=== PATIENT | female | born 1945 | race African-American/Black ===

== ENCOUNTER → 2016-06-09 14:43 | Outpatient (CLI) | payer MEDICARE ==
[~2016-06-09 14:43] MED LIST: AQUASOL E50 UNIT/ML; ASCORBIC ACID500 MG PO; BAYER CHEWABLE81 MG PO; COUMADIN3 MG PO; FERROUS SULFAT325 MG PO; LOPRESSOR25 MG PO; LOVENOX30 MG/0.3; NORVASC5 MG PO; VITAMIN D31000 UNI2 PO; VITAMIN E IM; ZOCOR20 MG PO; ZYLOPRIM100 MG PO
[2016-06-09 16:04] LABS: % SATURATION 18 % (15-55); IRON 48 ug/dl (35-150); TOTAL IRON BIND CAPACITY 259 ug/dl (260-445); UNSAT IRON BIND CAPACITY 211 ug/dl (150-375)
== END | disposition home or self-care (01) ==
LOC: D.LAB 14:43
PROVIDERS: Internal Medicine Gastroenterology
DX: D64.9 Anemia, unspecified (principal)

== ENCOUNTER → 2016-06-12 19:47 | Outpatient (CLI) | payer MEDICARE ==
[2015-04-17 11:30] VITALS: BMI 34.9
== END | disposition home or self-care (01) ==
LOC: D.LABREF 19:47
DX: K31.5 Obstruction of duodenum (principal); D64.9 Anemia, unspecified

== ENCOUNTER 2016-06-17 18:46 | Observation (INO) | payer MEDICARE ==
[~2016-06-17] VITALS: Ht 160 cm; Wt 68.2 kg
[2016-06-17 19:00] VITALS: BP 130/62
--- NOTE | 2016-06-17 20:00 | NUR ---
RECEIVED PT TO ROOM 2117 ALERT O X3. ADMITTED FOR OP PRBC TRANSFUSION.
--- NOTE | 2016-06-17 20:15 | NUR ---
CONSENT OBTAINED AND PLACED ON CHART.
--- NOTE | 2016-06-17 21:00 | NUR ---
IV SITED TO RIGHT FA, 20G X2 STICKS.
--- NOTE | 2016-06-17 21:45 | NUR ---
UNIT #1PRBC STARTED. VSS. WILL MONITOR PER PROTOCOL.
--- NOTE | 2016-06-17 22:54 | NUR ---
TOLERATING TRANSFUSION WELL WITH NO S/S REACTION AT THIS TIME. CONT TO MONITOR.
[2016-06-18 00:34] VITALS: BP 149/74
--- NOTE | 2016-06-18 01:00 | NUR ---
TOLERATED FIRST UNIT PRBC WELL WITH NO S/S REACTION.
[2016-06-18 03:22] VITALS: Ht 160 cm; Wt 68.2 kg
[2016-06-18 04:00] VITALS: BP 187/80
--- NOTE | 2016-06-18 04:11 | NUR ---
MEDICAL SCREENER AT BEDSIDE FOR VS. NEEDS ADDRESSED. CALL LIGHT INREACH. WILL CONT TO MONITOR.
--- NOTE | 2016-06-18 04:37 | NUR ---
UNIT #2 COMPLETE. TOLERATED WELL. VSS. FLUSHING NS
--- NOTE | 2016-06-18 06:00 | NUR ---
IVSL REMOVED WITH CATH TIP INTACT.
--- NOTE | 2016-06-18 06:26 | NUR ---
AMBULATE TO ER EXIT WITH PT TO DC HOME.
--- NOTE | 2016-06-18 06:26 | NUR ---
DC INSTRUCTIONS GIVEN TO FOLLOW UP WITH DR WAGGONER ALREADY PLANNED.
== END 2016-06-18 06:27 | disposition home or self-care (01) ==
LOC: D.OPS 18:46 → D.M2 18:51 → D.OPS 06-18 00:26 → D.M2 06-18 00:29 → OBSVTIME 06-18 00:29 → D.M2 06-18 06:27
PROVIDERS: ADMIT Emergency Medicine
DX: D64.9 Anemia, unspecified (principal)

== ENCOUNTER → 2016-09-22 13:40 | Outpatient (CLI) | payer MEDICARE ==
[2016-06-18 03:22] VITALS: BMI 26.6
== END | disposition home or self-care (01) ==
LOC: D.MAMMO 09:00
DX: Z85.3 Personal history of malignant neoplasm of breast (principal)

== ENCOUNTER → 2016-10-03 16:45 | Outpatient (CLI) | payer MEDICARE ==
[2016-06-18 03:22] VITALS: BMI 26.6
== END | disposition home or self-care (01) ==
LOC: D.MAMMO 11:00
DX: R92.8 Other abnormal and inconclusive findings on diagnostic imaging of breast (principal); Z85.3 Personal history of malignant neoplasm of breast

== ENCOUNTER 2018-04-20 09:00 | Day surgery (SDC) | payer MEDICARE ==
[~2018-04-20] VITALS: Ht 160 cm; Wt 87.3 kg
[2018-04-20 10:08] LABS: HEMOGLOBIN 12.7 g/dL (12-16); MCH 31.9 pg (26.0-34.0); MCHC 33.4 g/dL (31.0-37.0); MCV 95.5 fL (80.0-100.0); MEAN PLATELET VOLUME 11.3 fL (7.4-10.4); RBC 3.98 10x6/uL (4.00-5.40); RDW 14.1 % (11.5-14.5)
[2018-04-20] MEDS ORDERED: SODIUM BICARBO650 MG PO (11:41)
[2018-04-20] MEDS ORDERED: LEVOTHYROXINE50 MCG PO (11:41)
[2018-04-20] MEDS ORDERED: GLUCOTROL 5 MG T5 MG PO (11:41)
[2018-04-20 11:48] VITALS: BP 122/71; Ht 160 cm; Wt 87.3 kg
[2018-04-20 12:09] LABS: APTT 47.7 SECONDS (22.8-39.4)
[2018-04-20 12:12] LABS: INR 2.39 (0.85-1.17); PROTIME 25.3 SECONDS (11.6-15.0)
--- NOTE | 2018-04-20 14:42 | NUR ---
1435-discharged home via wheelchair
--- NOTE | 2018-04-21 11:00 | HP ---
PATIENT: RADHA PADILLA MEDICAL RECORD: [id number] ACCOUNT: [id number] LOCATION:[facility] : 41 ADMISSION DATE: 04/20/18 PCP: VERENICE GARCIA MD HISTORY AND PHYSICAL EXAMINATION HISTORY OF PRESENT ILLNESS: The patient has a history of multiple colon polyps. She is on Coumadin due to an artificial heart valve. She has been taking her Coumadin. SOCIAL HISTORY: Nonsmoker. PAST MEDICAL AND SURGICAL HISTORY: Hypertension, diabetes, hypothyroidism, chronic kidney disease as well as aortic valve replacement. ALLERGIES: No known drug allergies. PHYSICAL EXAMINATION: GENERAL: The patient does not appear acutely ill. She does not appear chronically ill. VITAL SIGNS: Reviewed. EARS: External ears appear normal. EYES: Extraocular movements are intact. NECK: Trachea is midline. CHEST: No intercostal retractions. PULMONARY: Nonlabored, no stridor. IMPRESSION: History of complex colon polyps and the patient is on Coumadin. PLAN: Colonoscopy, possible endoscopic mucosal resection, possible polypectomy utilizing the argon plasma american sign language interpreter. TRANSINT:[id number] Voice Confirmation ID: [id number] DOCUMENT ID: [id number] JUNE BROWN MD at 1100 CC: VERENICE GARCIA MD, Mae GOMEZ EDWARD [id number] DICTATION DATE: 04/20/18 1308 PUBLIC WORKS LABORER: 04/20/18 1504 [facility] 04/20/18 [place] [id number] [place] [id number]
--- NOTE | 2018-04-21 11:00 | OP ---
PATIENT NAME: RADHA PADILLA MEDICAL RECORD: [id number] :41 LOCATION:[facility] ADMISSION DATE: SURGEON: JUNE BROWN MD DATE OF OPERATION: 04/20/2018 PREOPERATIVE DIAGNOSIS: History of colon polyps. POSTOPERATIVE DIAGNOSIS: History of colon polyps with no recurrent polyps or persistence of any polyps. PROCEDURE: Surveillance colonoscopy. SURGEON: June Brown MD CHIEF MEDICAL DIRECTOR: None. BLOOD LOSS: Minimal. ANESTHESIA: IV sedation. COMPLICATIONS: None. The risks, possible complications, and alternatives to the procedure were explained to the patient. She elects to proceed. ENDOSCOPIC COURSE: The patient was conveyed to the endoscopy suite electively on 04/20/2018. IV sedation was induced by the anesthesia staff. The patient was placed in the Morales position. A digital rectal examination was performed. A colonoscope was inserted through the anus. It was easily advanced to the cecum. The prep was adequate. I slowly withdrew the endoscope. A combination of normal imaging and narrow band imaging was utilized. I dragged the folds. I irrigated and aspirated extensively. A retroflexed view was obtained in the rectum. I then unretroflexed the scope and removed it under direct vision. As no biopsies were performed, there is no need for her to follow up with me in the office unless she develops a complication related to this endoscopic procedure. I will plan for her next surveillance colonoscopy to take place in 3 years. TRANSINT:[id number] Voice Confirmation ID: [id number] DOCUMENT ID: [id number] JUNE BROWN MD at 1100 CC: VERENICE GARCIA MD, Mae GOMEZ EDWARD [id number] DICTATION DATE: 04/20/18 1339 OXYGEN THERAPY TECHNICIAN: 04/20/[address] [facility] 04/20/18 [place] [address]
== END 2018-04-20 14:35 | disposition home or self-care (01) ==
LOC: D.OPS 09:00
PROVIDERS: Anesthesiology
DX: Z86.010 Personal history of colon polyps (principal); Z79.01 Long term (current) use of anticoagulants; Z95.2 Presence of prosthetic heart valve; E03.9 Hypothyroidism, unspecified; E11.22 Type 2 diabetes mellitus with diabetic chronic kidney disease; I12.9 Hypertensive chronic kidney disease with stage 1 through stage 4 chronic kidney disease, or unspecified chronic kidney disease; N18.9 Chronic kidney disease, unspecified; Z01.812 Encounter for preprocedural laboratory examination

== ENCOUNTER → 2018-04-26 22:00 | Outpatient (CLI) | payer MEDICARE ==
[2018-04-20 11:48] VITALS: BMI 34.0
[~2018-04-26 22:00] MED LIST changes: +GLUCOTROL 5 MG T5 MG PO; +LEVOTHYROXINE50 MCG PO; +SODIUM BICARBO650 MG PO
== END | disposition home or self-care (01) ==
LOC: D.MAMMO 13:30
DX: Z85.3 Personal history of malignant neoplasm of breast (principal)

== ENCOUNTER → 2018-12-06 11:00 | Outpatient (CLI) | payer MEDICARE ==
[2018-04-20 11:48] VITALS: BMI 34.0
--- NOTE | 2018-12-09 13:30 | EC ---
PATIENT:RADHA PADILLA DATE OF SERVICE: 12/06/18 SEX: F MEDICAL RECORD: [id number] DATE OF : 41 [facility] AGE OF PATIENT: 73 ADMISSION DATE: 12/06/18 REFERRING PHYSICIAN: INTERPRETING PHYSICIAN: FRENCH ELY MD ECHOCARDIOGRAM REPORT ECHO CHARGES 4 ECHO COMPLETE Date: 12/06/18 CLINICAL DIAGNOSIS: MV STENSOSIS,MITRAL REGURG, HX OF AVR, AFIB ECHOCARDIOGRAPHIC MEASUREMENTS (adult normal given) AC root (d.<3.7cm) 2.9 cm LV Septum d (<1.2 cm> 1.0 cm Valve Excursion 1.3 cm LV Septum (systole) 1.2 cm Left Atria (s.<4.0cm> 3.7 cm LVPW d(<1.2cm) 1.2 cm RV (d.<2.3cm) 3.3 cm LVPW (sytole) 1.4 cm LV diastole(<5.6CM) 4.6 cm MV E-F(>70mm/sec) cm LV systole 2.8 cm LVOT Diameter 1.6 cm MV exc.(>10mm) 1.3 cm Est.ejection fraction (50-75%) % DOPPLER: LVIT cm/sec A 149.0cm/sec E 184 cm/sec LA cm/sec RVSP 52 mmHg LVOT 87 cm/sec AOP1/2T m/s Asc. Ao 145 cm/sec RVOT 55 cm/sec RA cm/sec PA 95 cm/sec AV Gradient Peak 8.46 mmHg AV Mean 4.71 mmHg AV Area 1.5 cm MV Gradient Peak 22.74mmHg MV Mean 8.52 mmHg MV Area cm COMMENTS: Food Production Associate: Tom WINKLER Land Department Head: 1 Dr. Ely TAPE# PACS Pericardial Effusion N DATE OF SERVICE: PROCEDURE: Echocardiogram. FINDINGS: 1. Left ventricular chamber size is within normal limits. Left ventricular systolic function is normal at 55% to 60%. 2. Left atrium is within normal limits at 3.7 cm. Right atrium and ventricular chamber sizes are as well within normal limits. 3. Valvular structures: Aortic valve is replaced with mechanical prosthesis ECHOCARDIOGRAM REPORT [id number] RADHA PADILLA with normal structure and function in this position. The remaining valvular structures have normal structure and motion. 4. Doppler interrogation else quintero reveals [id number] mitral regurgitation, moderate tricuspid regurgitation, no other valvular insufficiency or stenosis. Pulmonary systolic pressure is estimated 52 mmHg. 5. No evidence of pericardial effusion or left ventricular thrombus. TRANSINT:[id number] Voice Confirmation ID: [id number] DOCUMENT ID: [id number] FRENCH ELY MD at 1330 CC: [id number] DICTATION DATE: 12/07/18 1204 TRACTOR DISTRIBUTOR: 12/07/18 1309 DEP CLI 12/06/18 [place] [id number] [place] [address]
== END | disposition home or self-care (01) ==
LOC: D.HCCECHO 11:00
PROVIDERS: ATTEND Internal Medicine Interventional Cardiology
DX: I05.9 Rheumatic mitral valve disease, unspecified (principal)